=== PATIENT | female | born 1995 | race Two or more races ===

== ENCOUNTER → 2021-02-03 | Outpatient (CLI) | payer SELFPAY ==
[~2021-02-03] MED LIST: OXYC1TAB15 PO
--- NOTE | 2021-02-05 16:58 | NUR ---
IP: Monika on 3rd floor notified of positive COVID19 test result. Verbalized understanding.
--- NOTE | 2021-02-05 17:02 | NUR ---
IP: Patient and significant other notified of positive COVID19 test result. Verbalized understanding.
== END ==
LOC: LAB 13:47
PROVIDERS: ATTEND Obstetrics & Gynecology
DX: U07.1 COVID-19 (principal)
CPT/HCPCS: U0003; U0005

== ENCOUNTER 2021-02-06 05:18 | Inpatient (IN) | payer SELFPAY ==
[~2021-02-06] VITALS: Ht 172.7 cm; Wt 82.5 kg
[2021-02-06] VITALS (12 sets, daily range): BP systolic 96–125; BP diastolic 47–60
[2021-02-06] MEDS ORDERED: CITRIC ACID/SODIUM CITRATE 30 ML SOLUTION. PO ONE (05:30)
[2021-02-06] MEDS ORDERED: IV RINGERS,LACTATED 1000ML 1,000 ML IV SCH ×2 (05:30→06:45)
[2021-02-06 06:38] LABS: BASO # 0.1 x10^3/uL (0.0-0.2); BASO % 1 % (0-3); EOS % 1 % (0-3); HEMATOCRIT 34.1 % (36.0-47.0); HEMOGLOBIN 11.6 g/dL (12.0-15.5); LYMPH # 1.3 x10^3/uL (1.0-4.8); LYMPH % 17 % (24-48); MEAN CORPUSCULAR HEMOGLOBIN 31 pg (25-35); MEAN CORPUSCULAR HGB CONC 34 g/dL (31-37); MEAN CORPUSCULAR VOLUME 93 fL (79-100); MONO # 0.6 x10^3/uL (0.0-1.1); MONO % 8 % (0-9); NEUT # 5.7 x10^3/uL (1.8-7.7); NEUT % 74 % (31-73); PLATELET COUNT 149 x10^3/uL (140-400); RED BLOOD COUNT 3.69 x10^6/uL (3.50-5.40); RED CELL DISTRIBUTION WIDTH 19.5 % (11.5-14.5); WHITE BLOOD COUNT 7.6 x10^3/uL (4.0-11.0)
[2021-02-06] MEDS ORDERED: fentaNYL PF VIAL 100 MCG/2 ML VIAL IVP PRN ×2 (06:45)
[2021-02-06] MEDS ORDERED: HYDROmorphone 2 MG/ML VIAL IVP PRN (06:45)
[2021-02-06] MEDS ORDERED: MORPHINE SULFATE 2 MG/ML INJ. IVP PRN (06:45)
[2021-02-06] MEDS ORDERED: PROCHLORPERAZINE 10 MG/2 ML VIAL. IVP PRN (06:45)
[2021-02-06] MEDS ORDERED: OXYTOCIN 10 UNIT/ML VIAL. ONE ×2 (07:51→09:05)
[2021-02-06] MEDS ORDERED: fentaNYL PF VIAL 100 MCG/2 ML VIAL ONE (07:51)
[2021-02-06] MEDS ORDERED: MORPHINE PF 10 MG/10 ML AMPUL. ONE (07:51)
[2021-02-06] MEDS ORDERED: PHENYLEPHRINE in 0.9% NACL PF 1 MG/10 ML SYRINGE. IV ONE (07:52)
--- NOTE | 2021-02-06 07:57 | PDOC1 ---
TRAVEL SPECIALIST H&P Date of Admission: Date of Admission: Feb 06, 2021 at 05:18 History of Present Illness: EDC: 02/12/21 LMP: 05/08/20 25y @ 39.1 by L=21 presents for scheduled C/S. The pt initially was planning on a TOLAC, but after our discussion felt that a repeat C/S would be the safer option. PMH: Denies PSH: C/S x 1 Meds: PNV, Fe All: NKDA OBHx: TC/S x 1, AB x 1 SH: no tob, no EtOH FH: noncontributory Medications: Meds: Current Medications Medications (Trade) Dose Ordered Sig/Celina Route PRN Reason Start Time Stop Time Status Last Admin Dose Admin Ringer's Solution 1,000 ml @ 125 mls/hr Q8H IV 02/06/21 05:30 02/06/21 06:13 Citric Acid/ Sodium Citrate (Bicitra) 30 ml 1X ONCE PO 02/06/21 05:30 02/06/21 05:51 DC 02/06/21 07:55 Allergies: Coded Allergies: No Known Drug Allergies (Unverified , 02/06/21) Physical Exam: Vital Signs: Vital Signs Date Time Temp Pulse Resp B/P (MAP) Pulse Ox O2 Delivery O2 Flow Rate FiO2 02/06/21 05:46 98.7 70 18 96/60 (72) 98.7 PE: GENERAL: No apparent distress. Alert and oriented. HEENT: Head normocephalic, atraumatic. NECK: Supple LUNGS: Clear to auscultation. HEART: RRR, S1, S2 present, pulses intact ABDOMEN: Soft, positive bowel sounds. EXTREMITIES: No cyanosis or edema. NEUROLOGIC: Normal speech, normal tone PSYCHIATRIC: Normal affect, normal mood. SKIN: No ulceration. FHT: 130's +acels/occ small variables with ctxs/mLTV Davis: 8-10 min Labs: Laboratory Tests Test 02/06/21 06:00 White Blood Count 7.6 x10^3/uL (4.0-11.0) Red Blood Count 3.69 x10^6/uL (3.50-5.40) Hemoglobin 11.6 g/dL (12.0-15.5) L Hematocrit 34.1 % (36.0-47.0) L Mean Corpuscular Volume 93 fL (79-100) Mean Corpuscular Hemoglobin 31 pg (25-35) Mean Corpuscular Hemoglobin Concent 34 g/dL (31-37) Red Cell Distribution Width 19.5 % (11.5-14.5) H Platelet Count 149 x10^3/uL (140-400) Neutrophils (%) (Auto) 74 % (31-73) H Lymphocytes (%) (Auto) 17 % (24-48) L Monocytes (%) (Auto) 8 % (0-9) Eosinophils (%) (Auto) 1 % (0-3) Basophils (%) (Auto) 1 % (0-3) Neutrophils # (Auto) 5.7 x10^3/uL (1.8-7.7) Lymphocytes # (Auto) 1.3 x10^3/uL (1.0-4.8) Monocytes # (Auto) 0.6 x10^3/uL (0.0-1.1) Eosinophils # (Auto) 0.0 x10^3/uL (0.0-0.7) Basophils # (Auto) 0.1 x10^3/uL (0.0-0.2) Laboratory Tests 02/06/21 06:00 Laboratory Tests 02/06/21 06:00 Assessment & Plan: A/P 25y @ 39.1 by L=21 1.) Prev C/S x 1 - desires repeat 2.) Anemia - Hgb 9.2, on Fe BID 3.) Migraines 4.) TDAP given 11/22/20 5.) Fetus cat I FHT 6.) Covid screen pos 7.) GBS neg SABRINA STARK MD Feb 06, 2021 07:57
[2021-02-06 08:18] LABS: BILIRUBIN,URINE NEGATIVE (NEG); CLARITY,URINE CLOUDY; COLOR,URINE YELLOW; NITRITE,URINE NEGATIVE (NEG); PROTEIN,URINE NEGATIVE (NEG-TRACE)
[2021-02-06 08:41] LABS: BACTERIA,URINE MODERATE /HPF (0-FEW); RBC,URINE 0 /HPF (0-2); WBC,URINE 0 /HPF (0-4)
[2021-02-06] MEDS ORDERED: DOCUSATE SODIUM 100 MG CAPSULE. PO PRN (10:15)
[2021-02-06] MEDS ORDERED: BENZOCAINE 20% TOPICAL AEROSOL SPRAY 57GM CAN. TP PRN (10:15)
[2021-02-06] MEDS ORDERED: 0.9 % SODIUM CHLORIDE 10 ML DISP.SYRIN. IV PRN (10:15)
[2021-02-06] MEDS ORDERED: OXYTOCIN 30 UNIT/500 ML PREMIX 500 ML IV PRN (10:15)
[2021-02-06] MEDS ORDERED: MMR per PROTOCOL. MC PRN (10:15)
[2021-02-06] MEDS ORDERED: TDaP (Adacel) per PROTOCOL. MC PRN (10:15)
[2021-02-06] MEDS ORDERED: diphenhydrAMINE ORAL ELIXIR 12.5 MG/5 ML ML PO PRN (10:15)
[2021-02-06] MEDS ORDERED: ACETAMINOPHEN 325 MG TABLET. PO PRN (10:15)
--- NOTE | 2021-02-06 10:58 | PDOC4 ---
OPERATIVE NOTE: PreOp Dx: 1.) IUP @ 39.1 by L=21, 2.) Prev C/S x 1 - desires repeat, 3.) Anemia, 4.) Migraines, 5.) Covid screen pos, 6.) GBS neg PostOp Dx: same Procedure: RLTCS Surgeons: Summer Stark Anesthesia: Spinal EBL: 800 cc Fluids: 2100 cc UOP: 200 cc Findings: viable female delivered at 0845. Wt 8 lb 1 oz. Apgars 9/9. Nml maternal anatomy. Complication: None Path: Cord blood, placenta SABRINA STARK MD Feb 06, 2021 10:58
--- NOTE | 2021-02-06 11:29 | OP ---
PREOPERATIVE DIAGNOSES: 1. Intrauterine at 39 weeks and 1 day by last menstrual period equal to 21-week ultrasound. 2. Previous section x1, desires repeat. 3. Anemia. 4. Migraines. 5. Coronavirus disease screen positive. 6. Group B streptococcus negative. POSTOPERATIVE DIAGNOSES: 1. Intrauterine at 39 weeks and 1 day by last menstrual period equal to 21-week ultrasound. 2. Previous section x1, desires repeat. 3. Anemia. 4. Migraines. 5. Coronavirus disease screen positive. 6. Group B streptococcus negative. PROCEDURE: Repeat low transverse section. SURGEON: Charles Ford MD ANESTHESIA: Spinal. ESTIMATED BLOOD LOSS: 800 mL. FLUIDS: 2100 mL. URINE OUTPUT: 200 mL. FINDINGS: Viable female delivered at 0845, weighing 8 pounds 1 ounce with Apgars of 9 and 9. Some omental adhesions to the fundus of the uterus as well as omental adhesions to the anterior abdominal wall. Otherwise, normal maternal anatomy noted. COMPLICATIONS: None. PATHOLOGY: Cord blood. DESCRIPTION OF PROCEDURE: The patient was taken to the operating room, where spinal anesthesia was placed without difficulty. The patient was prepped and draped in normal sterile fashion. A Pfannenstiel skin incision was made through her previous incision, carried down to the underlying layer of fascia. The fascia was then nicked in the midline. The fascial incision was extended laterally with Zhou scissors. The superior aspect of the fascial incision was then grasped with Maia clamps, elevated, and the underlying rectus muscle was dissected off with the scalpel. Attention was then turned to the inferior aspect of the fascial incision, which was grasped with Maia clamps, elevated, and the underlying rectus muscle was dissected off with Zhou scissors. At that point, it was noted that the patient had a rather large diastasis of her rectus muscle. The peritoneum was then grabbed with 2 hemostats and tented up and entered sharply with Metzenbaum scissors. The peritoneum seemed to be attached to the omentum, so attempts were to get the peritoneal incision below the omentum. Once the peritoneal cavity had been extended, digital examination of the cavity revealed omental adhesions to the fundus of the uterus. At that point, the peritoneal incision was extended with traction and countertraction with good visualization of the bladder. At that point, the omental adhesions to the uterus could be better exposed. Once they were exposed, they were taken down with the Bovie. Once the uterus was free of any omental adhesions, the Willie ring was then placed into the abdomen to better visualize the lower uterine segment. A bladder flap was then created with Metzenbaum scissors. The lower uterine segment was then incised in transverse fashion. The hysterotomy was extended with traction and countertraction. At that point, the infant's head was flexed and brought to the hysterotomy. The rest of the was delivered atraumatically. The cord was doubly clamped and cut, and the infant was handed over to the waiting real estate sales associate. At that point, the placenta was removed manually and cleared of all clots and debris. There was noted to be a slight extension on the right of the uterine incision near the uterine vessels. It did not appear that this would change the repair. The uterine incision was then repaired with #1 chromic in a running locked fashion. A second layer of the same suture was used to imbricate. There was an area of the right extension that was still bleeding. The uterus was then exteriorized to better visualize it and isolate the vessels away from this bleeding area. A 3-0 chromic was then placed with a [id number] stitch with good hemostasis achieved. There was also an area on the cervix that was bleeding that was made hemostatic with the Bovie. At that point, the uterus was returned to the abdomen. At that point, the gutters were copiously irrigated and cleared of all clots and debris. Willie ring was then removed. It was noted that there was a significant amount of omentum attached to the anterior abdominal wall. The connection was too thick to take down safely. The connection did not create any hernias. The peritoneal incision was then reapproximated with 2-0 Vicryl in a running fashion. The muscle was reapproximated with 2-0 Vicryl in a running fashion. The fascia was closed with 0 Vicryl in a running fashion. The skin was then closed with 3-0 Monocryl in a subcuticular manner. Sponges, laps, and needles were correct x3. Two grams of Ancef were given prior to the procedure. The patient was taken to recovery room in stable condition. YANI DR: Ari TID: [id number] MTDD
[2021-02-06] MEDS: KETOROLAC 30 MG/ML VIAL. IVP PRN ×3 (12:11→23:58)
[2021-02-06] MEDS: FERROUS SULFATE 325 MG TABLET. PO SCH (17:00)
[2021-02-07 03:50] VITALS: BP 101/52
[2021-02-07] MEDS: KETOROLAC 30 MG/ML VIAL. IVP PRN (06:30)
[2021-02-07 07:49] LABS: HEMATOCRIT 30.8 % (36.0-47.0); HEMOGLOBIN 10.2 g/dL (12.0-15.5); RED BLOOD COUNT 3.29 x10^6/uL (3.50-5.40); RED CELL DISTRIBUTION WIDTH 19.4 % (11.5-14.5); WHITE BLOOD COUNT 10.6 x10^3/uL (4.0-11.0)
[2021-02-07 08:30] VITALS: BP 123/59
[2021-02-07] MEDS: FERROUS SULFATE 325 MG TABLET. PO SCH ×2 (08:41→18:39)
[2021-02-07] MEDS ORDERED: MULTIVITAMIN with MINERAL TABLET. PO SCH (09:00)
[2021-02-07] MEDS ORDERED: PRENATAL MULTIVITAMIN TABLET. PO SCH (09:00)
--- NOTE | 2021-02-07 10:52 | PDOC ---
LEAD NETWORK ARCHITECT PROGRESS NOTE Date of Service: DATE: 02/07/21 TIME: 10:52 Subjective: Pt with good pain control. Merlyn PO. Voiding. Minimal lochia. Objective: Vital Signs: Vital Signs Date Time Temp Pulse Resp B/P (MAP) Pulse Ox O2 Delivery O2 Flow Rate FiO2 02/06/21 13:01 98.6 60 18 112/52 (72) 98 98.6 02/06/21 13:03 Room Air Vital Signs Date Time Temp Pulse Resp B/P (MAP) Pulse Ox O2 Delivery O2 Flow Rate FiO2 02/07/21 08:56 Room Air 02/07/21 08:30 98.8 112 18 123/59 (80) 98 98.8 Labs: Laboratory Tests Test 02/07/21 07:20 White Blood Count 10.6 x10^3/uL (4.0-11.0) Red Blood Count 3.29 x10^6/uL (3.50-5.40) L Hemoglobin 10.2 g/dL (12.0-15.5) L Hematocrit 30.8 % (36.0-47.0) L Mean Corpuscular Volume 94 fL (79-100) Mean Corpuscular Hemoglobin 31 pg (25-35) Mean Corpuscular Hemoglobin Concent 33 g/dL (31-37) Red Cell Distribution Width 19.4 % (11.5-14.5) H Platelet Count 121 x10^3/uL (140-400) L Laboratory Tests 02/07/21 07:20 Laboratory Tests 02/07/21 07:20 Physical Exam: GENERAL: No apparent distress. Alert and oriented. HEENT: Head normocephalic, atraumatic. NECK: Supple LUNGS: Clear to auscultation. HEART: RRR, S1, S2 present, pulses intact ABDOMEN: Soft, positive bowel sounds. EXTREMITIES: No cyanosis or edema. NEUROLOGIC: Normal speech, normal tone PSYCHIATRIC: Normal affect, normal mood. SKIN: No ulceration. FFNT below umb No C/C/E Inc: dressing dry Assessment & Plan: A/P 25y POD #1 s/p RLTCS 1.) PO doing well 2.) Anemia - Hgb 11.6 -> 10.2 3.) Migraines 4.) TDAP given 11/22/20 5.) Covid screen pos in isolation 6.) Cont PO care SABRINA STARK MD Feb 07, 2021 10:52
[2021-02-07] MEDS: oxyCODONE/APAP 5/325 1 TAB TABLET PO PRN ×3 (13:10→22:27)
[2021-02-07] MEDS: IBUPROFEN 400 MG TABLET. PO PRN ×2 (13:10→22:26)
[2021-02-07 13:18] VITALS: BP 109/59
[2021-02-07 18:30] VITALS: BP 109/61
[2021-02-07 20:10] VITALS: BP 109/62
[2021-02-08] MEDS: oxyCODONE/APAP 5/325 1 TAB TABLET PO PRN ×3 (02:30→14:35)
[2021-02-08] MEDS: IBUPROFEN 400 MG TABLET. PO PRN ×2 (06:07→14:35)
[2021-02-08 06:12] VITALS: BP 115/58
[2021-02-08 09:30] VITALS: BP 124/70
--- NOTE | 2021-02-08 10:20 | PDOC ---
LUMBER SALES SUPERVISOR PROGRESS NOTE Date of Service: DATE: 02/08/21 TIME: 10:19 Subjective: Pt with good pain control. Merlyn PO. Voiding. Minimal lochia. Objective: Vital Signs: Vital Signs Date Time Temp Pulse Resp B/P (MAP) Pulse Ox O2 Delivery O2 Flow Rate FiO2 02/07/21 08:30 98.8 112 18 123/59 (80) 98 Room Air 98.8 Vital Signs Date Time Temp Pulse Resp B/P (MAP) Pulse Ox O2 Delivery O2 Flow Rate FiO2 02/08/21 09:41 18 Room Air 02/08/21 09:30 98.4 75 124/70 (88) 98 98.4 Physical Exam: GENERAL: No apparent distress. Alert and oriented. HEENT: Head normocephalic, atraumatic. NECK: Supple LUNGS: Clear to auscultation. HEART: RRR, S1, S2 present, pulses intact ABDOMEN: Soft, positive bowel sounds. EXTREMITIES: No cyanosis or edema. NEUROLOGIC: Normal speech, normal tone PSYCHIATRIC: Normal affect, normal mood. SKIN: No ulceration. FFNT below umb No C/C/E Inc: C/D/I Assessment & Plan: A/P 25y POD #2 s/p RLTCS 1.) PO doing well 2.) Anemia - Hgb 11.6 -> 10.2 3.) Migraines 4.) TDAP given 11/22/20 5.) Covid screen pos in isolation 6.) D/c home SABRINA STARK MD Feb 08, 2021 10:19
[2021-02-08] MEDS ORDERED: OXYC1TAB15 PO (10:23)
[2021-02-08] MEDS ORDERED: FLU VACC QUAD 21-22 (6MOS+) PF 0.5 ML SYRINGE. VAX IM ONE (11:45)
--- NOTE | 2021-02-08 12:26 | DS ---
DATE OF DISCHARGE: 02/08/2021 ADMISSION DIAGNOSES: 1. Intrauterine at 39 weeks and 1 day by LMP equal to 21-week ultrasound. 2. Previous section x 1, desires repeat. 3. Anemia. 4. History of migraines. 5. Status post Tdap. 6. Positive COVID screen. 7. GBS negative. DISCHARGE DIAGNOSES: 1. Intrauterine at 39 weeks and 1 day by LMP equal to 21-week ultrasound. 2. Previous section x 1, desires repeat. 3. Anemia. 4. History of migraines. 5. Status post Tdap. 6. Positive COVID screen. 7. GBS negative. PROCEDURE: Repeat low transverse . BRIEF HOSPITAL COURSE: The patient is a 25-year-old 3, para 1-0-1-1 at 39 weeks and 1 day by LMP equal to a 21-week ultrasound, who presented for a scheduled . The patient initially was planning on a trial of labor and after discussion of the risk of trial of labor after , the patient ultimately felt it was safer to have a repeat at the patient's COVID screening. The patient had COVID screening the weekend before and ultimately returned positive. The patient was placed on isolation and underwent a without complications. See operative note for full detail. By postop day #2, the patient was meeting all discharge criteria and subsequently discharged home. Of note, the patient's hemoglobin on admission was 11.6 and after delivery, was found to be 10.2. DISCHARGE INSTRUCTIONS: The patient was told not to lift anything greater than 20 pounds, have pelvic rest for 6 weeks, and not to drive on narcotics. CALL IF: The patient was to call if she had fevers, chills, nausea, vomiting, abdominal pain or any additional questions or concerns. FOLLOWUP APPOINTMENT: The patient was to follow up on 02/23/2021 at 1:15 p.m. for an incision check. DISCHARGE MEDICATIONS: The patient was given a prescription for Percocet 5, 15 pills; Motrin 800 mg, 30 pills and Colace 100 mg, 30 pills. MARINE/TUTU DR: Ari TID: [id number]
[2021-02-08 15:07] VITALS: BP 121/63
== END 2021-02-08 15:45 | disposition home or self-care (01) | DRG 786 ==
LOC: 3 SO LND 05:18 → EDUNIT# 08:00
PROVIDERS: ADMIT Obstetrics & Gynecology; ATTEND Obstetrics & Gynecology
PROC: 10D00Z1 Extraction of Products of Conception, Low, Open Approach (ICD-10-PCS; principal; 2021-02-06)
PROC: 3E02340 Introduction of Influenza Vaccine into Muscle, Percutaneous Approach (ICD-10-PCS; 2021-02-08)
DX: O98.52 Other viral diseases complicating childbirth (principal); U07.1 COVID-19; O99.354 Diseases of the nervous system complicating childbirth; O34.211 Maternal care for low transverse scar from previous cesarean delivery; G43.909 Migraine, unspecified, not intractable, without status migrainosus; O99.02 Anemia complicating childbirth; D64.9 Anemia, unspecified; Z3A.39 39 weeks gestation of pregnancy; Z37.0 Single live birth; Z23 Encounter for immunization
CPT/HCPCS: 36415; 81001; 85025; 85027; 86592; 86850; 86900; 86901; 87086; 90471; 90686; C1755; J0690; J1885; J2274; J2370; J2590; J3010; J7120; G0378